=== PATIENT | female | born 1950 | race Caucasian/White ===

== ENCOUNTER 2016-07-21 11:01 | Emergency (ER) | payer MEDICARE ==
[~2016-07-21] VITALS: Ht 172.7 cm; Wt 109.1 kg
[2016-07-21] MEDS ORDERED: METO25TAB PO (11:17)
[2016-07-21] MEDS ORDERED: PROZAC20 M1 PO (11:17)
[2016-07-21 13:52] LABS: HEMATOCRIT 44.2 % (37.0-47.0); HEMOGLOBIN 14.8 g/dl (12.0-16.0); IMMATURE GRANULOCYTES 0.2 % (0.0-1.0); MEAN CELL VOLUME 90.6 fL CALC (80.0-100.0); MEAN CORPUSCULAR HGB 30.3 pG CALC (26.0-32.0); MEAN CORPUSCULAR HGB CONC 33.5 g/L CALC (32.0-36.0); NEUT# 3.52 thou/uL (2.00-7.15); RED BLOOD COUNT 4.88 mill/uL (4.20-5.60); RED CELL DISTRI WIDTH 14.3 % (11.5-15.5)
[2016-07-21 14:01] LABS: ALBUMIN 4.1 g/dL (3.2-5.0); ALKALINE PHOSPHATASE 74 u/l (38-126); ANION GAP 16 (6-22 (CALC)); BILIRUBIN, TOTAL 0.8 mg/dL (0.0-1.4); BUN 9 mg/dL (8-23); BUN/CREATININE RATIO 14 (12-20 (CALC)); CALCIUM 8.8 mg/dL (8.4-10.2); CARBON DIOXIDE 22 mmol/l (22-30); CHLORIDE 108 mmol/l (95-108); CREATININE 0.7 mg/dL (0.5-1.0); GFR > 60 ML/MIN (>=60 (CALC)); GFR FOR AFR.AMER. > 60 ML/MIN (>=60 (CALC)); GLUCOSE 107 mg/dL (82-115); POTASSIUM 3.4 mmol/l (3.5-5.1); SGOT/AST 27 u/l (9-36); SGPT/ALT 34 u/l (11-66); SODIUM 143 mmol/l (137-146); TOTAL PROTEIN 7.6 g/dL (6.3-8.2)
[2016-07-21] MEDS ORDERED: TESSALON PER100 MG PO (14:25)
[2016-07-21] MEDS ORDERED: PREDNISONE10 MG PO (14:25)
[2016-07-21] MEDS ORDERED: ZITHROMAX250 MG PO (14:25)
[2016-07-21] MEDS ORDERED: VENTOLIN HF1 IN (14:25)
[2016-07-21 14:28] VITALS: BP 117/54
== END 2016-07-21 14:40 | disposition home or self-care (01) ==
LOC: ED 11:01
PROVIDERS: Emergency Medicine
DX: J40 Bronchitis, not specified as acute or chronic (principal); R05 Cough; R09.89 Other specified symptoms and signs involving the circulatory and respiratory systems; I34.1 Nonrheumatic mitral (valve) prolapse; R06.2 Wheezing

== ENCOUNTER 2017-07-12 11:03 | Emergency (ER) | payer BC ==
[~2017-07-12] VITALS: Ht 172.7 cm; Wt 109.0 kg
[~2017-07-12 11:03] MED LIST: METO25TAB PO; PREDNISONE10 MG PO; PROZAC20 M1 PO; TESSALON PER100 MG PO; VENTOLIN HF1 IN; ZITHROMAX250 MG PO
[2017-07-12 11:39] LABS: HEMATOCRIT 44.5 % (37.0-47.0); HEMOGLOBIN 15.1 g/dl (12.0-16.0); IMMATURE GRANULOCYTES 0.3 % (0.0-1.0); MEAN CELL VOLUME 89.9 fL CALC (80.0-100.0); MEAN CORPUSCULAR HGB 30.5 pG CALC (26.0-32.0); MEAN CORPUSCULAR HGB CONC 33.9 g/L CALC (32.0-36.0); NEUT# 3.48 thou/uL (2.00-7.15); RED BLOOD COUNT 4.95 mill/uL (4.20-5.60); RED CELL DISTRI WIDTH 13.6 % (11.5-15.5)
[2017-07-12 12:09] LABS: ALBUMIN 4.4 g/dL (3.2-5.0); ALKALINE PHOSPHATASE 79 u/l (38-126); ANION GAP 18 (6-22 (CALC)); BILIRUBIN, TOTAL 0.9 mg/dL (0.0-1.4); BUN 17 mg/dL (8-23); BUN/CREATININE RATIO 22 (12-20 (CALC)); CARBON DIOXIDE 21 mmol/l (22-30); CHLORIDE 109 mmol/l (95-108); CREATININE 0.8 mg/dL (0.5-1.0); GFR > 60 ML/MIN (>=60 (CALC)); GFR FOR AFR.AMER. > 60 ML/MIN (>=60 (CALC)); LIPASE 76 u/l (23-300); POTASSIUM 4.1 mmol/l (3.5-5.1); SGOT/AST 26 u/l (9-36); SGPT/ALT 30 u/l (11-66); SODIUM 144 mmol/l (137-146); TOTAL PROTEIN 7.3 g/dL (6.3-8.2)
[2017-07-12 12:17] LABS: URINE BILIRUBIN - DIPSTICK NEGATIVE (NEGATIVE); URINE BLOOD DIPSTICK TRACE-INTACT (NEGATIVE); URINE COLOR YELLOW; URINE GLUCOSE - DIPSTICK NEGATIVE (NEGATIVE); URINE KETONE NEGATIVE (NEGATIVE); URINE LEUK ESTERASE SMALL (NEGATIVE); URINE NITRITE - DIPSTICK NEGATIVE (Negative); URINE PROTEIN - DIPSTICK NEGATIVE (NEG-TRACE); URINE SPECIFIC GRAVITY <=1.005; URINE UROBILINOGEN - DIPSTICK 0.2 E.U./dL (0.2)
[2017-07-12 12:18] LABS: URINE BACTERIA FEW hpf; URINE CLARITY SL CLOUDY; URINE RBC 0-2 RBC/hpf (0-5)
[2017-07-12] MEDS ORDERED: RANITIDINE 150150 MG PO (12:48)
[2017-07-12] MEDS ORDERED: CEPHALEXIN500 M1 PO (12:48)
[2017-07-12 13:20] VITALS: BP 135/69
== END 2017-07-12 13:20 | disposition home or self-care (01) | DRG 392 ==
LOC: ED 11:03
PROVIDERS: Family Medicine
DX: R10.13 Epigastric pain (principal); B96.1 Klebsiella pneumoniae [K. pneumoniae] as the cause of diseases classified elsewhere; N39.0 Urinary tract infection, site not specified; I34.1 Nonrheumatic mitral (valve) prolapse
CPT/HCPCS: Q9967

== ENCOUNTER 2017-09-09 07:49 | Day surgery (SDC) | payer BC ==
[~2017-09-09] VITALS: Ht 172.7 cm; Wt 108.9 kg
[~2017-09-09 07:49] MED LIST changes: +ASPIRIN 81 LOW81 MG PO; +CEPHALEXIN500 M1 PO; +RANITIDINE 150150 MG PO; +[UNRECOGNIZED DRUG - OTHER] PO
[2017-09-09] MEDS ORDERED: TORADOL PO (10:52)
[2017-09-09] MEDS ORDERED: PERCOCET 5/325M1 TAB PO (10:52)
[2017-09-09 12:14] VITALS: BP 106/52
== END 2017-09-09 12:45 | disposition home or self-care (01) | DRG 355 ==
LOC: ORM 07:49
PROVIDERS: ATTEND Surgery
PROC: 0WUF4JZ Supplement Abdominal Wall with Synthetic Substitute, Percutaneous Endoscopic Approach (ICD-10-PCS; principal; 2017-09-09)
DX: K43.6 Other and unspecified ventral hernia with obstruction, without gangrene (principal); I10 Essential (primary) hypertension
CPT/HCPCS: J2710

== ENCOUNTER → 2018-06-11 | Outpatient (REF) | payer BC ==
[~2018-06-11] MED LIST changes: +PERCOCET 5/325M1 TAB PO; +TORADOL PO
== END | disposition home or self-care (01) | DRG 310 ==
LOC: DI 06-08 17:00
PROVIDERS: ATTEND Internal Medicine
DX: R00.2 Palpitations (principal); I34.1 Nonrheumatic mitral (valve) prolapse

== ENCOUNTER 2022-01-13 19:28 | Emergency (ER) | payer OTHER ==
[~2022-01-13] VITALS: Ht 172.7 cm; Wt 110.0 kg
[~2022-01-13 19:28] MED LIST changes: +METOPROLOL SUCC50 MG PO; +SLOW-MAG PO; +VITAMI16 PO; +VITAMIN D PO
[2022-01-13 19:50] VITALS: BP 120/59
[2022-01-13 20:03] VITALS: BP 107/57
[2022-01-13 20:55] LABS: ALKALINE PHOSPHATASE 74 u/l (38-126); AMYLASE 58 u/l (30-110); ANION GAP 12 (6-22 (CALC)); BILIRUBIN, TOTAL 1.3 mg/dL (0.0-1.4); BUN 13 mg/dL (8-23); BUN/CREATININE RATIO 16 (12-20 (CALC)); CARBON DIOXIDE 23 mmol/l (22-30); CHLORIDE 106 mmol/l (95-108); CREATININE 0.8 mg/dL (0.5-1.0); GFR FOR AFR.AMER. > 60 ML/MIN (>=60 (CALC)); GFR OTHER RACES > 60 ML/MIN (>=60 (CALC)); HEMATOCRIT 44.5 % (37.0-47.0); HEMOGLOBIN 14.8 g/dl (12.0-16.0); IMMATURE GRANULOCYTES 0.1 % (0.0-5.0); LIPASE 30 u/l (23-300); MEAN CORPUSCULAR HGB 32.6 pG CALC (26.0-32.0); MEAN CORPUSCULAR HGB CONC 33.3 g/dL CAL (32.0-36.0); NEUT# 8.07 thou/uL (2.00-7.15); POTASSIUM 3.6 mmol/l (3.5-5.1); RED BLOOD COUNT 4.54 mill/uL (4.20-5.60); SGOT/AST 24 u/l (9-36); SODIUM 138 mmol/l (137-146)
[2022-01-13 21:07] LABS: MYOGLOBIN 50 ng/mL (0 - 62)
[2022-01-13 22:30] LABS: URINE BLOOD DIPSTICK MODERATE (NEGATIVE); URINE COLOR YELLOW; URINE GLUCOSE - DIPSTICK NEGATIVE (NEGATIVE); URINE KETONE 15 mg/dL (NEGATIVE); URINE PROTEIN - DIPSTICK 30 mg/dL (NEG-TRACE); URINE UROBILINOGEN - DIPSTICK 0.2 E.U./dL (0.2)
[2022-01-13 22:32] LABS: URINE BILIRUBIN - DIPSTICK SMALL (NEGATIVE); URINE LEUK ESTERASE MODERATE (NEGATIVE); URINE NITRITE - DIPSTICK NEGATIVE (Negative)
[2022-01-13 22:45] LABS: URINE BACTERIA MANY hpf; URINE SQUAMOUS EPITHELIAL CELL FEW EPI/hpf (0-FEW); URINE WBC 20-50 WBC/hpf (0-5)
[2022-01-13] MEDS ORDERED: METRONIDAZOLE500 MG PO (23:55)
[2022-01-13] MEDS ORDERED: CIPROFLOXACN500 MG PO (23:55)
[2022-01-14 01:44] VITALS: BP 107/57
== END 2022-01-14 01:40 | disposition home or self-care (01) | DRG 392 ==
LOC: ED 19:28
PROVIDERS: Emergency Medicine
DX: K57.32 Diverticulitis of large intestine without perforation or abscess without bleeding (principal); N39.0 Urinary tract infection, site not specified; I10 Essential (primary) hypertension; I34.1 Nonrheumatic mitral (valve) prolapse; B96.20 Unspecified Escherichia coli [E. coli] as the cause of diseases classified elsewhere

== ENCOUNTER 2022-09-14 19:01 | Emergency (ER) | payer OTHER ==
[~2022-09-14] VITALS: Ht 172.7 cm; Wt 106.5 kg
[2022-09-14] VITALS (7 sets, daily range): BP systolic 108–126; BP diastolic 51–91
[~2022-09-14 19:01] MED LIST changes: +CIPROFLOXACN500 MG PO; +METRONIDAZOLE500 MG PO
[2022-09-14 20:18] LABS: URINE BILIRUBIN - DIPSTICK NEGATIVE (NEGATIVE); URINE BLOOD DIPSTICK TRACE-INTACT (NEGATIVE); URINE COLOR YELLOW; URINE GLUCOSE - DIPSTICK NEGATIVE (NEGATIVE); URINE KETONE NEGATIVE (NEGATIVE); URINE LEUK ESTERASE NEGATIVE (NEGATIVE); URINE NITRITE - DIPSTICK NEGATIVE (Negative); URINE PROTEIN - DIPSTICK NEGATIVE (NEG-TRACE); URINE SPECIFIC GRAVITY 1.015; URINE UROBILINOGEN - DIPSTICK 0.2 E.U./dL (0.2)
[2022-09-14 20:52] LABS: BASO% 0.9 % (0-3); EOS% 5.5 % (0-8); HEMATOCRIT 47.5 % (37.0-47.0); HEMOGLOBIN 14.4 g/dl (12.0-16.0); IMMATURE GRANULOCYTES 0.3 % (0.0-5.0); LYMPH% 31.1 % (15-41); MEAN CELL VOLUME 100.4 fL CALC (80.0-100.0); MEAN CORPUSCULAR HGB 30.4 pG CALC (26.0-32.0); MEAN CORPUSCULAR HGB CONC 30.3 g/dL CAL (32.0-36.0); MONO% 10.9 % (2-13); NEUT# 3.62 thou/uL (2.00-7.15); NEUT% 51.3 % (42-76); RED BLOOD COUNT 4.73 mill/uL (4.20-5.60); RED CELL DISTRI WIDTH 13.7 % (11.5-15.5)
[2022-09-14 21:09] LABS: ALBUMIN 3.9 g/dL (3.2-5.0); ALKALINE PHOSPHATASE 78 u/l (38-126); ANION GAP 14 (6-22 (CALC)); BILIRUBIN, TOTAL 0.8 mg/dL (0.02-1.3); BUN 15 mg/dL (8-23); BUN/CREATININE RATIO 19 (12-20 (CALC)); CHLORIDE 109 mmol/l (95-108); CREATININE 0.8 mg/dL (0.5-1.0); GFR FOR AFR.AMER. > 60 ML/MIN (>=60 (CALC)); GFR OTHER RACES > 60 ML/MIN (>=60 (CALC)); POTASSIUM 3.9 mmol/l (3.5-5.1); SGOT/AST 25 u/l (9-36); SODIUM 137 mmol/l (137-146); TOTAL PROTEIN 7.3 g/dL (6.3-8.2)
[2022-09-14 21:13] LABS: CARBON DIOXIDE 18 mmol/l (22-30)
[2022-09-14] MEDS ORDERED: KEFLEX500 MG PO (21:34)
== END 2022-09-14 21:42 | disposition home or self-care (01) | DRG 153 ==
LOC: ED 19:01
PROVIDERS: Emergency Medicine
DX: J06.9 Acute upper respiratory infection, unspecified (principal); I10 Essential (primary) hypertension; I34.1 Nonrheumatic mitral (valve) prolapse; Z20.822 Contact with and (suspected) exposure to COVID-19